=== PATIENT | female | born 1965 | race Caucasian/White ===

== ENCOUNTER 2016-08-31 12:13 | Emergency (ER) | payer MEDICAID ==
[~2016-08-31] VITALS: Ht 160 cm; Wt 104.3 kg
[2016-08-31 12:53] LABS: BILIRUBIN,URINE NEGATIVE (NEGATIVE); BLOOD, URINE 3+ (NEGATIVE); GLUCOSE,URINE NEGATIVE (NEGATIVE); KETONES,URINE NEGATIVE (NEGATIVE); LEUKOCYTE ESTERASE ,URINE TRACE (NEGATIVE); NITRITE, URINE POSITIVE (NEGATIVE); PROTEIN URINE 2+ (NEGATIVE)
[2016-08-31 12:55] LABS: BASOPHILS # (AUTO) 0.1 K/uL (0.0-0.2); BASOPHILS % (AUTO) 1.7 % (0.0-2.0); EOSINOPHILS # (AUTO) 0.1 K/uL (0.0-0.4); EOSINOPHILS % (AUTO) 1.5 % (0.0-4.0); HEMATOCRIT 35.7 % (36-48); HEMOGLOBIN 10.9 g/dL (12.0-16.0); LYMPHOCYTES % (AUTO) 38.5 % (20.5-51.5); MEAN CORPUSCULAR HEMOGLOBIN 19 pg (27-31); MEAN CORPUSCULAR HGB CONC 31 % (32-36); MEAN CORPUSCULAR VOLUME 61 fL (79.0-98.0); MONOCYTES # (AUTO) 0.4 K/uL (0.0-1.0); MONOCYTES % (AUTO) 7.1 % (1.7-9.3); NEUTROPHILS # (AUTO) 2.6 K/uL (1.8-7.7); NEUTROPHILS % (AUTO) 51.2 % (40.0-70.0); PLATELET COUNT (AUTO) 324 K/uL (130-430); RED BLOOD CELL COUNT(AUTO) 5.86 MIL/uL (4.2-6.2); RED CELL DISTRIBUTION WIDTH 19.9 % (9.0-15.0); WHITE BLOOD COUNT (AUTO) 5.2 K/uL (4.8-10.8)
[2016-08-31 12:58] LABS: CLARITY/URINE CLOUDY (CLEAR); COLOR,URINE RED (YELLOW)
[2016-08-31 13:02] LABS: BACTERIA,URINE FEW /HPF (None Seen); RBC,URINE 80-100 /HPF (0-3)
[2016-08-31 13:10] LABS: CALCIUM 9.1 mg/dL (8.4-11.0); CREATININE 0.81 mg/dL (0.55-1.30); POTASSIUM 4.3 mmol/L (3.5-5.1)
[2016-08-31 13:12] LABS: PROTHROMBIN TIME 10.4 SECS (9.5-12.5)
[2016-08-31 13:14] LABS: TOTAL BILIRUBIN 0.5 mg/dL (0.0-1.0); TOTAL PROTEIN, SERUM 8.4 g/dL (6.4-8.3)
[2016-08-31 16:34] VITALS: BP_SYST 138
== END 2016-08-31 16:34 | disposition home or self-care (01) ==
LOC: SED 12:13
DX: N93.8 Other specified abnormal uterine and vaginal bleeding (principal); D25.9 Leiomyoma of uterus, unspecified; N83.201 Unspecified ovarian cyst, right side; N30.90 Cystitis, unspecified without hematuria; D50.9 Iron deficiency anemia, unspecified
CPT/HCPCS: 36415; 76830-TC; 76856-TC; 76857; 80053; 81000-TC; 81025; 85025; 85610-TC; 85730-TC; 87086; 99285

== ENCOUNTER 2017-02-23 13:03 | Emergency (ER) | payer MEDICAID ==
[~2017-02-23] VITALS: Ht 162.6 cm; Wt 99.8 kg
[2017-02-23 13:03] VITALS: BP_SYST 139
--- NOTE | 2017-02-23 13:10 | NUR ---
Patient triaged and placed in waiting room. VSS and patient appears in no acute distress at this time. Accompanied by KIDS, awaiting available bed, and MD notified of need for MSE.
--- NOTE | 2017-02-23 13:30 | NUR ---
EVALUATED BY RAMANDEEP DYER IN TRIAGE ROOM .
--- NOTE | 2017-02-23 14:17 | NUR ---
Pt placed in chair 2 with complaints of cough, fever and generalized body aches for the past couple days. Pt denies n/v or diarrhea. No other injuries/complaints per pt or noted.
[2017-02-23 15:00] VITALS: BP_SYST 130
--- NOTE | 2017-02-23 15:00 | NUR ---
Patient given written and verbal discharge instructions and verbalizes understanding. ER MD discussed with patient the results and treatment provided. Patient in stable condition. ID arm band removed. Rx of motrin, tessalon perles, prednisone and zofran given. Patient educated on pain management and to follow up with PMD. Pain Scale 0. Opportunity for questions provided and answered.
== END 2017-02-23 15:00 | disposition home or self-care (01) ==
LOC: SED 13:03
DX: J06.9 Acute upper respiratory infection, unspecified (principal); R03.0 Elevated blood-pressure reading, without diagnosis of hypertension
CPT/HCPCS: 36415; 86710; 99284

== ENCOUNTER 2018-05-20 17:45 | Emergency (ER) | payer MEDICAID ==
[~2018-05-20] VITALS: Ht 160 cm; Wt 54.4 kg
[2018-05-20 18:11] VITALS: BP_SYST 156
--- NOTE | 2018-05-20 19:39 | NUR ---
Patient to ER bed 5 to gown for evaluation. Side rails up. Report given to JACKELYN ARITA.
--- NOTE | 2018-05-20 19:55 | NUR ---
195 - ER at bedside examining patient.
--- NOTE | 2018-05-20 20:00 | NUR ---
1999 - First contact w/ pt. Pt states she developed dryness and itchiness to right eyelid, saw her PMD who told her it was fungal, and gave RX for topical cream. Pt states this AM, her right eye became red, and itchy. Denies any change in visual acuity. Pt is A&OX4, no distress. Awaiting dispo at this time.
--- NOTE | 2018-05-20 20:23 | NUR ---
Patient given written and verbal discharge instructions and verbalizes understanding. ER MD discussed with patient the results and treatment provided. Patient in stable condition. ID arm band removed. Rx of CIPRO EYE DROP given. Patient educated on pain management and to follow up with PMD. Pain Scale 7/10. Opportunity for questions provided and answered. Medication side effect fact sheet provided.
[2018-05-20 20:24] VITALS: BP_SYST 146
== END 2018-05-20 20:24 | disposition home or self-care (01) ==
LOC: SED 17:45
DX: H10.9 Unspecified conjunctivitis (principal)
CPT/HCPCS: 99283